=== PATIENT | male | born 1995 | race Caucasian/White ===

== ENCOUNTER 2020-05-30 14:38 | Emergency (ER) | payer BC ==
[2020-05-30] MEDS ORDERED: Lidocaine 1% w/Epinephrine 1:100K 20 ML VIAL ONE (15:43)
== END 2020-05-30 15:59 | disposition home or self-care (01) ==
LOC: CSHERS 14:38
DX: S61.412A Laceration without foreign body of left hand, initial encounter (principal); W45.8XXA Other foreign body or object entering through skin, initial encounter
CPT/HCPCS: 12001

== ENCOUNTER 2021-12-10 17:56 | Emergency (ER) | payer BC, SELFPAY ==
[2021-12-10] MEDS ORDERED: Tetracaine 0.5% PF 4 ML BOT ONE (18:38)
[2021-12-10] MEDS ORDERED: Fluorescein Opthalmic Strip ONE (18:39)
== END 2021-12-10 19:15 | disposition home or self-care (01) ==
LOC: CSHERS 17:56
DX: T15.01XA Foreign body in cornea, right eye, initial encounter (principal); F17.220 Nicotine dependence, chewing tobacco, uncomplicated
CPT/HCPCS: 99283